=== PATIENT | female | born 2000 | race Caucasian/White ===

== ENCOUNTER → 2024-12-26 14:51 | Outpatient (CLI) | payer OTHER, SELFPAY ==
[2024-12-26 16:28] LABS: HCG Quantitative /Beta subunit < 2.39 mIU/mL
[2024-12-26 16:55] LABS: TSH w/ Reflex to FT4 1.96 uIU/mL (0.47-4.68)
== END ==
PROVIDERS: PCP Physician Assistant; Referring Provider Obstetrics & Gynecology; Visit Provider Obstetrics & Gynecology
DX: N91.1 Secondary amenorrhea (principal)
CPT/HCPCS: 36415; 84146; 84443; 84702